=== PATIENT | female | born 1985 | race Caucasian/White ===

== ENCOUNTER 2016-04-14 11:16 | Observation (INO) | payer OTHER ==
[2016-04-14 11:52] LABS: Appearance,Urine Clear (Clear); Bacteria,Urine Occasional /hpf; Bilirubin,Urine Negative (Negative); Glucose,Urine (UA) Negative (Negative); Ketones,Urine Negative (Negative); Leukocyte Esterase,Urine Small (Negative); Mucus,Urine Rare /hpf; Nitrite,Urine Negative (Negative); PH, Urine 6.5 (5.0-8.0); Particle Count 6025; Protein,Urine 1+ (Negative); RBC,Urine 5 /hpf (0-5); Specific Gravity,Urine 1.013 (1.001-1.035); Squamous Epithelial Cell,Urine 2 /hpf (0-4); UA Billing (MACRO vs. MICRO) MICRO; Urobilinogen,Urine <2.0 mg/dL (<2.0); WBC,Urine 12 /hpf (0-5)
[2016-04-14] MEDS ORDERED: MORPHINE SULFATE 2 MG/ML SYRINGE IVP ONE (12:10)
[2016-04-14] MEDS ORDERED: ONDANSETRON 4 MG/2 ML VIAL IVP STA (12:10)
[2016-04-14] MEDS: LACTATED RINGERS 1,000 ML IV ONE ×2 (12:43→12:55)
--- NOTE | 2016-04-14 12:49 | US ---
EXAMINATION TYPE: US kidneys/renal and bladder DATE OF EXAM: 04/14/2016 12:37 PM COMPARISON: NONE CLINICAL HISTORY: right side flank pain. History of kidney infection. 28 weeks EXAM MEASUREMENTS: Right Kidney: 13.9 x 6.6 x 6.6 cm Left Kidney: 10.8 x 5.0 x 5.1 cm Findings: Right Kidney: moderate hydronephrosis Left Kidney: No hydronephrosis or nephrolithiasis. Bladder: appears within normal limits. Bilateral Jets seen: yes No solid or cystic mass seen. IMPRESSION: There is moderate right-sided hydronephrosis with no evidence of renal calculus.
[2016-04-14 12:51] LABS: Basophils % (A) 0 %; CH 31.3; Eosinophils % (A) 0 %; HCT 31.9 % (34.0-46.0); HDW 2.94; HGB 10.8 gm/dL (11.4-16.0); Luc # (Auto) 0.22; Luc % (Auto) 2; Lymphocytes # (A) 0.7 k/uL (1.0-4.8); Lymphocytes % (A) 5 %; MCH 30.5 pg (25.0-35.0); MCHC 33.9 g/dL (31.0-37.0); MCV 89.9 fL (80.0-100.0); Mean Platelet Volume 7.7; Monocytes # (A) 0.6 k/uL (0-1.0); Monocytes % (A) 4 %; Neutrophils # (A) 12.9 k/uL (1.3-7.7); Neutrophils % (A) 89 %; RBC 3.54 m/uL (3.80-5.40); RDW 13.4 % (11.5-15.5); WBC 14.4 k/uL (3.8-10.6); WBC (Perox) 15.32
[2016-04-14] MEDS ORDERED: MORPHINE SULFATE 2 MG/ML SYRINGE IVP PRN (13:16)
[2016-04-14] MEDS: LACTATED RINGERS 1,000 ML IV SCH ×2 (13:46→23:05)
[2016-04-14 14:12] VITALS: BMI 29.9
[2016-04-14] MEDS ORDERED: Acetaminophen-Codeine 300-30mg TAB PO PRN (15:15)
[2016-04-14] MEDS: Acetaminophen-Codeine 300-30mg TAB PO PRN ×2 (15:30→19:48)
[2016-04-14 16:46] LABS: Bilirubin, Delta 0.1 mg/dL (0.0-0.2); Total Bilirubin 0.5 mg/dL (0.2-1.3); Total Protein 6.1 g/dL (6.3-8.2)
--- NOTE | 2016-04-14 16:51 | P.HPOB ---
History of Present Illness H&P Date: 04/14/16 Chief Complaint: Right flank pain In was 31-year-old at 27 weeks who reports that on Thursday she began having right flank and back pain. Pain persisted through the weekend and despite slightly worsening symptoms on Thursday she decided to stay home. She went to work then today and the pain got severe rated 9 out of 10. Patient came to labor and delivery and was evaluated initial concern was that of a kidney stone. She was treated by Dr. Anna with morphine sulfate for pain control and was to be observed and see if the pain would get better. Throughout the day her pain continued to worsen in the came slightly more generalized to both the right flank and right upper abdominal area. She reports that she has no shortness of breath or other symptoms of respiratory etiology. She reports that throughout much the day it is been 8 out of 10 despite morphine sulfate and Tylenol 3. She denies any difficulty and tolerating her diet. Her white blood cell count was 14. There was a trace of blood on the urinalysis. Ultrasound of the kidneys revealed right hydronephrosis only. No stone is noted. THE GALLBLADDER WAS NEGATIVE. LIVER TESTS ARE PENDING. STILL SUSPECT LIKELY KIDNEY STONE VERSUS ATYPICAL KIDNEY INFECTION as she was treated for a bladder infection a couple of weeks ago but did not finish her antibiotics. We'll restart her on Unasyn as a precaution. And repeat her CBC in the morning. On physical exam vital signs are currently stable and she is afebrile. Her heart is regular, lungs are clear, extremities are without pain. Abdomen is soft uterus is soft no contractions are noted in the heart tones had been reassuring in the 130s to 150s. She did have costovertebral angle tenderness on the right side only. Assessment right flank pain atypical kidney infection versus stone Plan IV hydration and precautionary antibiotics. We'll repeat her CBC in the morning and continue observational status with pain control. Past Medical History Past Medical History: No Reported History History of Any Multi-Drug Resistant Organisms: None Reported Past Surgical History: No Surgical Hx Reported Additional Past Surgical History / Comment(s): surgery on lt side of head to fix soft spot as infant Past Anesthesia/Blood Transfusion Reactions: No Reported Reaction Past Psychological History: No Psychological Hx Reported Smoking Status: Never smoker Past Alcohol Use History: Abuse, Daily, Occasional Past Drug Use History: None Reported - Past Family History Mother Family Medical History: No Reported History Medications and Allergies Home Medications Medication Instructions Recorded Confirmed Type Pnv with Ca,No.72/Iron/FA 1 each PO DAILY 04/14/16 04/14/16 History [ Plus Tablet] Allergies Allergy/AdvReac Type Severity Reaction Status Date / Time No Known Allergies Allergy Verified 04/14/16 11:21 Exam Osteopathic Statement: *. No significant issues noted on an osteopathic structural exam other than those noted in the History and Physical/Consult. - Vital Signs Vital signs: Vital Signs Temp Pulse Resp BP 04/14/16 11:22 97.7 F 89 16 109/60 Intake and Output 04/14/16 04/14/16 04/14/16 06:59 14:59 22:59 Other: # Voids 1 Weight 84.368 kg Patient Weight 04/15/16 06:59 Weight 84.368 kg Results Result Diagrams: 04/14/16 12:40 Abnormal Lab Results - Last 24 Hours (Table) 04/14/16 04/14/16 04/14/16 Range/Units 11:25 12:40 16:13 WBC 14.4 H (3.8-10.6) k/uL RBC 3.54 L (3.80-5.40) m/uL Hgb 10.8 L (11.4-16.0) gm/dL Hct 31.9 L (34.0-46.0) % Neutrophils # 12.9 H (1.3-7.7) k/uL Lymphocytes # 0.7 L (1.0-4.8) k/uL Total Protein 6.1 L (6.3-8.2) g/dL Albumin 3.3 L (3.5-5.0) g/dL Urine Protein 1+ H (Negative) Urine Blood Trace H (Negative) Ur Leukocyte Esterase Small H (Negative) Urine WBC 12 H (0-5) /hpf Urine Bacteria Occasional H (None) /hpf Urine Mucus Rare H (None) /hpf
--- NOTE | 2016-04-14 17:11 | US ---
EXAMINATION TYPE: US gallbladder DATE OF EXAM: 04/14/2016 4:59 PM COMPARISON: NONE CLINICAL HISTORY: right side pain. 28 weeks , right hydronephrosis EXAM MEASUREMENTS: Liver Length: 17.8 cm Gallbladder Wall: 0.2 cm CBD: 0.4 cm Right Kidney: 12.7 x 7.5 x 6.6 cm TECHNOLOGIST IMPRESSION: Pancreas: obscured by overlying bowel content Liver: appears wnl Gallbladder: no evidence of stones Evidence for sonographic Bueno's sign: no CBD: appears wnl Right Kidney: hydronephrosis IMPRESSION: No gallstones or dilated ducts. There is moderate right-sided hydronephrosis. This howeve r is not changed compared to old exam of 04/14/2016. There is no significant right renal atrophy and th is probably relates to reflux disease.
[2016-04-14] MEDS: AMPICILLIN-SULBACTAM 1.5 GM in SODIUM CHLORIDE 0.9% 50 ML IVPB SCH ×2 (17:52→23:38)
[2016-04-15] MEDS: AMPICILLIN-SULBACTAM 1.5 GM in SODIUM CHLORIDE 0.9% 50 ML IVPB SCH ×4 (05:44→23:30)
[2016-04-15 07:47] LABS: Basophils % (A) 0 %; CH 30.6; Eosinophils # (A) 0.1 k/uL (0-0.7); Eosinophils % (A) 1 %; HCT 29.9 % (34.0-46.0); HDW 2.94; HGB 10.1 gm/dL (11.4-16.0); Luc % (Auto) 2; Lymphocytes # (A) 0.7 k/uL (1.0-4.8); Lymphocytes % (A) 7 %; MCH 30.7 pg (25.0-35.0); MCHC 33.9 g/dL (31.0-37.0); MCV 90.7 fL (80.0-100.0); Mean Platelet Volume 7.9; Monocytes # (A) 0.6 k/uL (0-1.0); Monocytes % (A) 6 %; Neutrophils # (A) 8.2 k/uL (1.3-7.7); Neutrophils % (A) 84 %; RDW 13.3 % (11.5-15.5); WBC 9.8 k/uL (3.8-10.6); WBC (Perox) 10.28
--- NOTE | 2016-04-15 08:34 | P.PN ---
Subjective Principal diagnosis: Right flank pain Patient states her pain is no better since yesterday. She states the Tylenol 3 did not help at all and the morphine just made her go to sleep but only took her pain down the notch. She states the pain does feel like when she had a kidney infection in the past. She has noted no stones in her urine. No blood that she is visualized in her urine. She does have some nausea but thinks it is associated with the pain. She is feeling good movement. Objective - Vital Signs Vital signs: Vital Signs Temp 97.7 F 04/14/16 11:22 Pulse 89 04/14/16 11:22 Resp 16 04/14/16 11:22 BP 109/60 04/14/16 11:22 Pulse Ox Intake & Output 04/14/16 04/15/16 04/15/16 18:59 06:59 18:59 Intake Total 1100 Balance 1100 Weight 84.368 kg Intake: IV 1000 Lactated Ringers 1,000 ml 1000 @ 125 mls/hr IV .Q8H BRANDO Rx#:[id number] Intake, IV Titration 100 Amount Ampicillin-Sulbactam 1.5 100 gm In Sodium Chloride 0.9 % 50 ml @ 100 mls/hr IVPB Q6HR BRANDO Rx#:[id number] Other: # Voids 1 1 - Constitutional General appearance: Present: mild distress - Gastrointestinal Localized gastrointestinal: tender: RLQ (Right flank pain positive) - Labs CBC & Chem 7: 04/15/16 07:06 Labs: Abnormal Lab Results - Last 24 Hours (Table) 04/14/16 04/14/16 04/14/16 Range/Units 11:25 12:40 16:13 WBC 14.4 H (3.8-10.6) k/uL RBC 3.54 L (3.80-5.40) m/uL Hgb 10.8 L (11.4-16.0) gm/dL Hct 31.9 L (34.0-46.0) % Plt Count (150-450) k/uL Neutrophils # 12.9 H (1.3-7.7) k/uL Lymphocytes # 0.7 L (1.0-4.8) k/uL Total Protein 6.1 L (6.3-8.2) g/dL Albumin 3.3 L (3.5-5.0) g/dL Urine Protein 1+ H (Negative) Urine Blood Trace H (Negative) Ur Leukocyte Esterase Small H (Negative) Urine WBC 12 H (0-5) /hpf Urine Bacteria Occasional H (None) /hpf Urine Mucus Rare H (None) /hpf 04/15/16 Range/Units 07:06 WBC (3.8-10.6) k/uL RBC 3.30 L (3.80-5.40) m/uL Hgb 10.1 L (11.4-16.0) gm/dL Hct 29.9 L (34.0-46.0) % Plt Count 146 L (150-450) k/uL Neutrophils # 8.2 H (1.3-7.7) k/uL Lymphocytes # 0.7 L (1.0-4.8) k/uL Total Protein (6.3-8.2) g/dL Albumin (3.5-5.0) g/dL Urine Protein (Negative) Urine Blood (Negative) Ur Leukocyte Esterase (Negative) Urine WBC (0-5) /hpf Urine Bacteria (None) /hpf Urine Mucus (None) /hpf Microbiology - Last 24 Hours (Table) 04/14/16 12:13 Urine Culture - Preliminary Urine,Clean Catch - Imaging and Cardiology US - abdomen: report reviewed Assessment and Plan (1) Acute abdominal pain in right flank Status: Acute (2) Kidney stone on right side Narrative/Plan: Probable kidney stone on right side Status: Acute Plan: Based on the right hydronephrosis and her right flank pain, she most likely has a kidney stone that is working its way through. We'll continue with antibiotic prophylaxis and I encouraged her to ambulate to help remove the stone. We'll continue with IV and oral hydration. Will try Dilaudid instead of morphine to see if we can get better pain control for her.
[2016-04-15] MEDS: LACTATED RINGERS 1,000 ML IV SCH ×2 (09:00→18:30)
[2016-04-15] MEDS: HYDROmorphone 1 MG/ML 1 ML SYRINGE IVP PRN ×3 (09:01→22:34)
--- NOTE | 2016-04-15 21:57 | P.MSEPDOC ---
Presenting Problems - Arrival Data Date of Arrival on Unit: 04/14/16 Time of Arrival on Unit: 11:10 Mode of Transport: Portable - Complaint OB-Reason for Admission/Chief Complaint: Signs/Symptoms UTI Medical History - Information : 1 Para: 0 Term: 0 : 0 Abortions: Spontaneous or Elective: 0 Number of Living Children: 0 - Gestational Age Expected Date of Delivery: 07/08/16 Gestational Age by AMANDA (wks/days): 28 Weeks and 0 Days Review of Systems - Review of Systems Constitutional: No problems Breast: No problems ENT: No problems Cardiovascular: No problems Respiratory: No problems Gastrointestinal: No problems Genitourinary: No problems Musculoskeletal: No problems Vital Signs - Temperature Temperature: 98 F Temperature Source: Oral - Pulse Right Sitting Brachial Pulse Rate: 95 Pulse Assessment Method: Automatic Cuff - Respirations Respiratory Rate: 20 Oxygen Delivery Method: Room Air - Blood Pressure Right Arm Sitting Blood Pressure: 111/58 Blood Pressure Mean: 75 Blood Pressure Source: Automatic Cuff Medical Screen Scoring (Pre) - Total Score Total Score (Pre): 0 - Level of Risk Level of Risk: Low (0-5) Medical Screen Scoring (Post) - Total Score Total Score (Post): 6 - Post Treatment Level of Risk Post Treatment Level of Risk: Medium (6-9) Physician Notification (Post) - Physician Notified Physician Notified Date: 04/14/16 Physician Notified Time: 13:20 Physician/Practitioner Notified:: Dr Dawson Spoke With: Dr Dawson New Order Received: Yes - Notification Comment Comment: Admit for observation Disposition - Disposition OB Disposition: Admit, LDRP Suite I agree with the RN Medical Screening Exam: Yes Risk & Benefit of care provided described in d/c instruction: Yes
[2016-04-16] MEDS: AMPICILLIN-SULBACTAM 1.5 GM in SODIUM CHLORIDE 0.9% 50 ML IVPB SCH (05:43)
[2016-04-16] MEDS: LACTATED RINGERS 1,000 ML IV SCH ×4 (05:44→19:59)
[2016-04-16] MEDS: HYDROmorphone 1 MG/ML 1 ML SYRINGE IVP PRN (05:53)
[2016-04-16 06:02] LABS: Basophils % (A) 0 %; CH 30.6; CHCM 34.2; Eosinophils # (A) 0.1 k/uL (0-0.7); Eosinophils % (A) 1 %; HCT 29.7 % (34.0-46.0); HDW 3.07; HGB 10.1 gm/dL (11.4-16.0); Luc # (Auto) 0.35; Luc % (Auto) 4; Lymphocytes % (A) 11 %; MCH 30.6 pg (25.0-35.0); MCV 90.1 fL (80.0-100.0); Mean Platelet Volume 7.6; Monocytes # (A) 0.6 k/uL (0-1.0); Monocytes % (A) 7 %; Neutrophils # (A) 7.1 k/uL (1.3-7.7); Neutrophils % (A) 78 %; RBC 3.29 m/uL (3.80-5.40); RDW 13.2 % (11.5-15.5); WBC 9.2 k/uL (3.8-10.6); WBC (Perox) 9.75
--- NOTE | 2016-04-16 08:37 | P.PN ---
Subjective Principal diagnosis: Right flank pain Patient has been and bleeding yesterday. She feels that the pain may have shifted slightly more forward but still in her right flank. The Dilaudid does work much better than the morphine did but does make her tired. She vomited 1 time yesterday but she thinks it was due to the pain medication. She has been drinking planning of fluids. Her urine culture did come back negative for growth. Objective - Vital Signs Vital signs: Vital Signs Temp 97.5 F L 04/16/16 00:00 Pulse 77 04/16/16 00:00 Resp 14 04/16/16 00:00 BP 113/63 04/16/16 00:00 Pulse Ox Intake & Output 04/15/16 04/16/16 04/16/16 18:59 06:59 18:59 Intake Total 1000 Balance 1000 Intake: IV 1000 Lactated Ringers 1,000 ml 1000 @ 125 mls/hr IV .Q8H BRANDO Rx#:[id number] Other: # Voids 2 2 - Constitutional General appearance: Present: no acute distress - Gastrointestinal Localized gastrointestinal: tender: RLQ (Right flank tenderness with some mild percussion tenderness to the right kidney area. No guarding or rebound is noted.) - Labs CBC & Chem 7: 04/16/16 05:39 Labs: Abnormal Lab Results - Last 24 Hours (Table) 04/16/16 Range/Units 05:39 RBC 3.29 L (3.80-5.40) m/uL Hgb 10.1 L (11.4-16.0) gm/dL Hct 29.7 L (34.0-46.0) % Microbiology - Last 24 Hours (Table) 04/14/16 12:13 Urine Culture - Final Urine,Clean Catch Assessment and Plan (1) Acute abdominal pain in right flank Status: Acute (2) Kidney stone on right side Status: Acute Plan: I have advised the patient to first take the oral Tylenol 3 and then if it is ineffective she should requested the Dilaudid. I've advised her to continue ambulating as much as possible. If she the oral pain medications can make her pain tolerable, we will be able to send her home on oral Tylenol 3. She is advised to continue straining her urine even home. Dr. Dawson will cover in my absence today.
[2016-04-16] MEDS: Acetaminophen-Codeine 300-30mg TAB PO PRN ×2 (13:12→23:08)
[2016-04-17 00:34] VITALS: BP 99/52; PULSE 71; RESP 16; TEMP 97.3
[2016-04-17] MEDS: LACTATED RINGERS 1,000 ML IV SCH (04:13)
--- NOTE | 2016-04-17 10:21 | P.DS ---
Providers Date of admission: 04/14/16 13:17 Expected date of discharge: 04/17/16 Attending physician: Bianca Flowers Primary care physician: Stated None Hospital Course: Family is feeling significantly better today. She is voicing no complaints and her pain is essentially completely resolved. Still some question as to whether not she has a kidney stone or other abnormality including possible muscle strain or spasm as well as just positioning of the baby. However since she is pain-free we will plan to discharge her to home today and have her follow up with Dr. Anna next week. Prescription for approximately 20 Tylenol 3 has been provided just in case she starts having pain returned. She is however aware that should she have severe pain or significant tenderness, high temperatures, or other abnormalities that are concerning she is to return to labor and delivery. Otherwise her vital signs are in stable and she is afebrile. Heart regular lungs clear, extremities without pain. Abdomen is now soft and nontender positive bowel sounds are noted. Assessment intrauterine with right flank pain now resolved. Patient Condition at Discharge: Good Plan - Discharge Summary Discharge Medication List Pnv with Ca,No.72/Iron/FA [ Plus Tablet] 1 each PO DAILY 04/14/16 [ History]
== END 2016-04-17 11:15 | disposition home or self-care (01) ==
LOC: FBPOP 11:16 → 4FBP 13:17
PROVIDERS: ADMIT Obstetrics & Gynecology; ATTEND Obstetrics & Gynecology
DX: O26.892 Other specified pregnancy related conditions, second trimester (principal); R10.31 Right lower quadrant pain; Z3A.27 27 weeks gestation of pregnancy; N13.30 Unspecified hydronephrosis; R11.10 Vomiting, unspecified; Z79.899 Other long term (current) drug therapy
CPT/HCPCS: 96361; 96374; 80076; 82248; 85025 ×3; 81001; 87086; 76770; 76705; G0378 ×4; G0463; J2270; J1170 ×2; J0295 ×3; 96365; 96366; 96375; 96376; 99214

== ENCOUNTER → 2016-05-01 | Outpatient (CLI) | payer OTHER ==
[2016-05-01 13:07] LABS: CH 29.8; CHCM 33.5; HCT 29.5 % (34.0-46.0); HDW 3.53; HGB 9.8 gm/dL (11.4-16.0); Hypochromasia Slight; MCH 29.7 pg (25.0-35.0); MCHC 33.2 g/dL (31.0-37.0); MCV 89.5 fL (80.0-100.0); Mean Platelet Volume 6.8; Poikilocytosis Slight; RDW 13.3 % (11.5-15.5); WBC 9.1 k/uL (3.8-10.6)
== END ==
LOC: LABWHC1 11:48
PROVIDERS: ATTEND Obstetrics & Gynecology
DX: Z34.02 Encounter for supervision of normal first pregnancy, second trimester (principal); Z3A.00 Weeks of gestation of pregnancy not specified
CPT/HCPCS: 36415; 82950; 85027

== ENCOUNTER 2016-07-15 06:00 | Inpatient (IN) | payer OTHER ==
--- NOTE | 2016-07-14 17:00 | P.HPOB ---
History of Present Illness H&P Date: 07/14/16 Chief Complaint: Induction of labor This is a 31-year-old female 1 para 0 with an estimated date of confinement of 07/08/2016, estimated gestational age of 41-0/7 weeks, who presents to labor and delivery for induction of labor secondary to postdates. She admits to good movement. She has been feeling irregular contractions. She does complain of some leg swelling but no headaches or blurry vision. labs: GC/chlamydia-negative HIV-nonreactive Quad screen-negative Random glucose-59 Hepatitis B surface antigen-negative Hemoglobin-10.8 Rubella-immune Blood type-O+ Antibody screen-negative Toxoplasma-negative Syphilis antibody-negative Obstetrical ultrasound-normal anatomy One hour Glucola-97 Group B streptococcus-negative Obstetrical history: Gynecologic history: No history of sexual transmitted diseases Social history: She is single with a boyfriend. She works full-time at [employer] in [employer]. Review of Systems Constitutional: Denies chills, Denies fever Eyes: denies blurred vision Ears, nose, mouth and throat: Denies headache, Denies sore throat Cardiovascular: Denies chest pain, Denies shortness of breath Respiratory: Denies cough Gastrointestinal: Reports abdominal pain (Irregular contractions) Genitourinary: Reports pelvic pain, Reports Musculoskeletal: bilateral: ankle swelling Neurological: Denies numbness, Denies weakness Psychiatric: Denies anxiety, Denies depression Past Medical History Past Medical History: No Reported History History of Any Multi-Drug Resistant Organisms: None Reported Past Surgical History: No Surgical Hx Reported Additional Past Surgical History / Comment(s): surgery on lt side of head to fix soft spot as Past Anesthesia/Blood Transfusion Reactions: No Reported Reaction Past Psychological History: No Psychological Hx Reported Smoking Status: Former smoker Past Alcohol Use History: None Reported Past Drug Use History: None Reported - Past Family History Mother Family Medical History: No Reported History Father Family Medical History: Hypertension Medications and Allergies Home Medications Medication Instructions Recorded Confirmed Type Pnv,Calcium 72/Iron/Folic Acid 1 each PO DAILY 04/14/16 04/25/16 History [ Plus Tablet] Allergies Allergy/AdvReac Type Severity Reaction Status Date / Time No Known Allergies Allergy Verified 04/14/16 11:21 Exam Osteopathic Statement: *. No significant issues noted on an osteopathic structural exam other than those noted in the History and Physical/Consult. HEENT: Within normal limits Heart: Regular rate and rhythm Lungs: Clear to auscultation bilaterally Abdomen: Soft, Cervix: 1 cm/70%/-2 station heart tones: 140s by Doppler Extremities: Trace edema Assessment and Plan (1) Post-dates Status: Acute Plan: Proceed with oxytocin induction of labor. Expectant management. Epidural anesthesia if desired.
[2016-07-15] MEDS ORDERED: OXYTOCIN 10 UNIT/ML 1 ML VIAL IM PRN (06:23)
[2016-07-15] MEDS ORDERED: TERBUTALINE 1 MG/ML VIAL SQ PRN (06:23)
[2016-07-15] MEDS ORDERED: OXYTOCIN 20 UNITS/1000 ML NS 1,000 ML IV SCH (06:23)
[2016-07-15] MEDS ORDERED: LIDOCAINE 1% 20 ML VIAL (10MG/ML) FOR IV START INTRADERMA PRN (06:23)
[2016-07-15] MEDS ORDERED: LIDOCAINE 1% (PF) 10 MG/ML (30 ML SDV) SQ PRN (06:23)
[2016-07-15] MEDS ORDERED: METHYLERGONOVINE 0.2 MG/ML 1 ML AMP IM PRN (06:23)
[2016-07-15] MEDS ORDERED: CARBOPROST TROMETHAMINE 250 MCG/ML 1 ML AMP IM PRN (06:23)
[2016-07-15 06:30] VITALS: BMI 33.5
[2016-07-15 07:16] LABS: Basophils % (A) 0 %; CH 30.1; CHCM 35.5; Eosinophils # (A) 0.1 k/uL (0-0.7); Eosinophils % (A) 1 %; HCT 34.4 % (34.0-46.0); HDW 3.24; HGB 12.3 gm/dL (11.4-16.0); Luc # (Auto) 0.27; Luc % (Auto) 3; Lymphocytes # (A) 1.5 k/uL (1.0-4.8); Lymphocytes % (A) 15 %; MCH 30.5 pg (25.0-35.0); MCHC 35.8 g/dL (31.0-37.0); MCV 85.1 fL (80.0-100.0); Monocytes # (A) 0.4 k/uL (0-1.0); Monocytes % (A) 4 %; Neutrophils # (A) 7.9 k/uL (1.3-7.7); Neutrophils % (A) 77 %; RBC 4.04 m/uL (3.80-5.40); RDW 14.5 % (11.5-15.5); WBC 10.2 k/uL (3.8-10.6); WBC (Perox) 10.34
[2016-07-15 07:21] LABS: Appearance,Urine Cloudy (Clear); Bacteria,Urine Occasional /hpf; Bilirubin,Urine Negative (Negative); Glucose,Urine (UA) Negative (Negative); Ketones,Urine Negative (Negative); Leukocyte Esterase,Urine Moderate (Negative); Mucus,Urine Moderate /hpf; Nitrite,Urine Negative (Negative); PH, Urine 6.5 (5.0-8.0); Particle Count 12543; Protein,Urine 1+ (Negative); Specific Gravity,Urine 1.011 (1.001-1.035); Squamous Epithelial Cell,Urine 5 /hpf (0-4); UA Billing (MACRO vs. MICRO) MICRO; Urobilinogen,Urine <2.0 mg/dL (<2.0); WBC,Urine 14 /hpf (0-5)
[2016-07-15 07:28] LABS: INR 0.9 (<1.1); Prothrombin Time 9.2 sec (9.0-12.0)
[2016-07-15 07:37] LABS: ALT 54 U/L (9-52); AST 41 U/L (14-36); Blood Urea Nitrogen 7 mg/dL (7-17); LDH 617 U/L (313-618); Non-African American GFR(MDRD) >60 (>60 ml/min/1.73 sqM); Uric Acid 5.5 mg/dL (3.7-7.4)
[2016-07-15] MEDS: LACTATED RINGERS 1,000 ML IV SCH ×2 (07:46→13:28)
[2016-07-15] MEDS ORDERED: LABETALOL 5 MG/ML VIAL MDV IVP ONE (08:48)
[2016-07-15] MEDS ORDERED: MAGNESIUM SULFATE-WATER PMX 4 GM in WATER FOR INJECTION 50 50ML.BAG IVPB ONE (08:48)
[2016-07-15] MEDS: MAGNESIUM SULFATE-WATER PMX 20 GM in WATER FOR INJECTION 1 500ML.BAG IV SCH ×2 (09:08→18:15)
[2016-07-15] MEDS ORDERED: SODIUM CHLORIDE 0.9% 100 ML BAG ONE ×3 (14:16→20:17)
[2016-07-15] MEDS ORDERED: fentaNYL (PF) 50 MCG/ML 5 ML AMP ONE ×2 (14:16→20:17)
[2016-07-15] MEDS ORDERED: BUPIVACAINE (PF) 0.25% 30 ML VIAL ONE ×2 (14:16→20:17)
[2016-07-15] MEDS ORDERED: BUPIVACAINE (PF) 0.25% 25 ML, fentaNYL (PF) 200 MCG in SODIUM CHLORIDE 0.9% 71 ML EPIDURAL ONE (16:05)
[2016-07-15] MEDS ORDERED: CITRIC ACID-SODIUM CITRATE 15 ML CUP PO ONE (18:05)
[2016-07-15] MEDS ORDERED: ceFAZolin 2 GM in SODIUM CHLORIDE 0.9% 100 ML IVPB ONE (18:05)
[2016-07-15] MEDS ORDERED: ONDANSETRON 4 MG/2 ML VIAL IM STA (19:43)
[2016-07-15] MEDS ORDERED: OXYTOCIN 10 UNIT/ML 1 ML VIAL ONE (20:17)
[2016-07-15] MEDS ORDERED: ceFAZolin 1,000 MG VIAL ONE (20:17)
[2016-07-15] MEDS ORDERED: ONDANSETRON 4 MG/2 ML VIAL ONE (20:17)
[2016-07-15] MEDS ORDERED: KETOROLAC 30 MG/ML 1 ML VIAL ONE (20:17)
[2016-07-15] MEDS ORDERED: CHLOROPROCAINE 3% 30 MG/ML 20 ML VIAL ONE (20:17)
[2016-07-15] MEDS ORDERED: ePHEDrine 50 MG/ML 1 ML AMP ONE (20:17)
[2016-07-15 20:47] LABS: Hepatitis B Surface Ag Index 0.06
[2016-07-15 20:53] LABS: Hepatitis B Core IgM Index 0.02
[2016-07-15 21:04] LABS: Hepatitis C Virus IgG Ab Negative (Negative); Hepatitis C Virus IgG Index 0.01
--- NOTE | 2016-07-15 21:12 | P.OP ---
Date of Procedure: 07/15/16 Preoperative Diagnosis: 1. Intrauterine at 41-0/7 weeks. 2. Failure to progress. 3. Severe preeclampsia. Postoperative Diagnosis: Same Procedure(s) Performed: Primary low transverse section Implants: Anesthesia: epidural Surgeon: Bianca Flowers Inhalation Therapy Aide #1: Merlin Swenson Estimated Blood Loss (ml): 600 Pathology: other (Placenta) Condition: stable Disposition: floor Indications for Procedure: This is a 31-year-old female 1 para 0 at 41-0/7 weeks who initially presented this morning for induction of labor at that has been scheduled. Upon arrival, she was noted to have elevated blood pressures. Labs were ordered and she was found to have 1+ protein and slightly elevated liver enzymes. Her platelet count was normal. Her blood pressures continued to elevate up to over 160/110. At this time she was given labetalol protocol IV. She did receive 3 doses up to the maximum of 80 mg. This along with magnesium sulfate seizure prophylaxis did bring her blood pressures down considerably. She reached approximate 3 cm and then requested epidural. She was comfortable after her epidural however she did not make any further change despite adequate contractions. At this point there was also noted some caput present. At this point the decision was made to proceed with section. I have discussed the risks, benefits, and alternative therapies for the above- mentioned procedure and for both sedation/anesthesia as well as necessary blood products administration, if indicated, as they pertain to this patient. The patient has indicated her understanding and acceptance of the risks and procedures discussed. Operative Findings: A viable female infant was noted in the vertex presentation with scores of 8 at 1 minute and 9 at 5 minutes and weight of 8 lbs. 0 oz. There was a small amount of caput noted. Normal uterus tubes and ovaries were noted. Description of Procedure: The patient is taken to the operating room where she is placed in the dorsal supine position with leftward tilt after epidural anesthesia is bolused. She is prepped and draped in the normal sterile fashion. Skin was tested and found to be adequately anesthetized. A Pfannenstiel skin incision was made with a scalpel. A second knife was used to carry the incision down to the underlying layer of fascia. The fascia was nicked in the midline with a scalpel and then extended laterally bilaterally with Kaplan scissors. The anterior lip of the fascia was grasped with 2 Jennifer clamps and then dissected off the underlying rectus muscle in the midline with Kaplan scissors. The inferior aspect of the fascial incision was grasped with 2 Jennifer clamps and dissected off the underlying rectus muscle and the midline with Kaplan scissors. Next the peritoneum layer was tented up with 2 hemostats and then entered sharply with the scalpel. The incision is extended superiorly and inferiorly with Metzenbaum scissors. Next a DeLee retractor is placed. The vesicouterine peritoneum is entered sharply with Metzenbaum scissors and extended laterally bilaterally with Metzenbaum scissors and then the bladder flap is pushed inferiorly. The lower uterine segment is incised in transverse fashion with the scalpel and then bluntly entered with a hemostat. Clear fluid is noted. The incision was then extended laterally bilaterally with 2 fingers. Next the 's head is delivered through the incision. Nose and mouth are bulb suctioned. The remainder of the is easily delivered and placed on mother 's abdomen. Cord is clamped and cut. Infant is taken to warmer by nursing staff. Uterine fundus is gently massaged and placenta is delivered manually. Uterus is exteriorized and cleared of all clots and debris. Uterine incision is closed with 0 Vicryl suture in a running locked fashion. A second layer of 0 Vicryl suture is used in a running fashion for hemostasis. Once adequate hemostasis as assured, the vesicouterine peritoneum is reapproximated with 2-0 Vicryl suture in a running fashion. Posterior cul-de-sac is suctioned of all clots and debris. Uterus is returned to the abdomen. Incision is noted to be hemostatic. Peritoneal layer is closed with 0 Vicryl suture in a running fashion. Muscle layer is reapproximated with 0 Vicryl suture in interrupted fashion. Fascia layer is then closed with 0 PDS suture with 2 sutures meeting in the midline and the knots buried in either side and in the midline. The subcutaneous tissue was then closed with 2-0 Vicryl suture. Skin layer was then closed with kourtney. All sponge and needle counts are correct. The patient is taken to recovery room in stable condition.
[2016-07-15] MEDS ORDERED: diphenhydrAMINE 25 MG CAP PO PRN (21:24)
[2016-07-15] MEDS ORDERED: ZOLPIDEM 5 MG TAB PO PRN (21:24)
[2016-07-15] MEDS ORDERED: LANOLIN CREAM 5 GM TUBE TOPICAL PRN (21:24)
[2016-07-15] MEDS ORDERED: HYDROmorphone PCA 5 MG/25 ML SYRINGE IV PRN (21:24)
[2016-07-15] MEDS ORDERED: METOCLOPRAMIDE 5 MG/ML 2 ML VIAL IVP PRN (21:24)
[2016-07-15] MEDS ORDERED: ACETAMINOPHEN TAB 325 MG TAB PO PRN ×2 (21:24)
[2016-07-15] MEDS ORDERED: HYDROCORTISONE 2.5% RECTAL CREAM 30 GM TUBE RECTAL PRN (21:24)
[2016-07-15] MEDS ORDERED: NALOXONE 0.4 MG/ML 1 ML VIAL IV PRN (21:24)
[2016-07-15] MEDS ORDERED: diphenhydrAMINE 50 MG/ML 1 ML VIAL IVP PRN ×2 (21:24)
[2016-07-15] MEDS ORDERED: Acetaminophen-Codeine 300-30mg TAB PO PRN (21:24)
[2016-07-15] MEDS ORDERED: diphenhydrAMINE 50 MG CAP PO PRN (21:24)
[2016-07-15] MEDS ORDERED: ONDANSETRON 4 MG/2 ML VIAL IVP PRN (21:24)
[2016-07-15] MEDS ORDERED: SIMETHICONE 80 MG CHEWABLE PO PRN (21:24)
[2016-07-15] MEDS ORDERED: WITCH HAZEL 1 EACH MED..PAD TOPICAL PRN (21:24)
[2016-07-15] MEDS: SENNOSIDES-DOCUSATE SODIUM 1 EACH TAB PO SCH (23:52)
[2016-07-16] MEDS: LACTATED RINGERS 1,000 ML IV SCH ×3 (00:26→13:57)
[2016-07-16] MEDS ORDERED: LABETALOL 200 MG TAB PO STA (03:08)
[2016-07-16] MEDS: KETOROLAC 30 MG/ML 1 ML VIAL IVP PRN ×3 (03:13→17:12)
[2016-07-16] MEDS: MAGNESIUM SULFATE-WATER PMX 20 GM in WATER FOR INJECTION 1 500ML.BAG IV SCH (04:51)
--- NOTE | 2016-07-16 05:47 | P.PNOBGPC ---
Subjective - Subjective Principal diagnosis: Status post primary section postoperative day #1 Interval history: Patient has not been ambulating due to being on magnesium sulfate seizure prophylaxis. She is not passing gas or flatus yet. Lochia is decreasing. Pain is fairly well controlled with WINDSCREEN FITTER pump. She did require 1 dose of labetalol 200 mg orally at approximately 3 AM due to increasing blood pressures. Her blood pressures have come down since that time. Alcala catheter shows good urine output with clear urine. Patient reports: Reports appetite normal, Reports pain well controlled : doing well, nursing well Objective - Vital Signs Latest vital signs: Vital Signs Temp Pulse Resp BP Pulse Ox 07/16/16 04:00 96.3 F L 77 16 141/90 98 07/16/16 03:30 74 16 141/91 98 07/16/16 02:30 86 16 162/96 94 L 07/16/16 01:30 61 16 155/88 96 07/16/16 00:30 96.3 F L 56 L 16 141/81 100 07/15/16 23:07 97 F L 79 16 145/86 99 07/15/16 22:37 78 16 155/84 98 07/15/16 22:07 83 18 156/86 97 07/15/16 21:52 96.6 F L 110 H 18 139/93 100 07/15/16 21:37 94 16 141/89 99 07/15/16 21:24 98 07/15/16 21:22 76 18 104/51 99 07/15/16 21:07 96.6 F L 73 18 105/53 98 07/15/16 06:22 96.4 F L 81 18 142/103 99 Intake and Output 07/15/16 07/15/16 07/16/16 14:59 22:59 06:59 Intake Total 1050 913.173 9337 Output Total 600 2800 Balance 1050 355.833 -800 Intake: IV 1050 500 700 Lactated Ringers 1,000 ml 1000 400 @ 125 mls/hr IV .Q8H [facility] Rx#:[id number] Magnesium Sulfate-Water 500 300 Pmx 20 gm In Water For Injection 1 500ml.bag @ 2 GM/HR 50 mls/hr IV .Q10H [facility] Rx#:[id number] Magnesium Sulfate-Water 50 Pmx 4 gm In Water For Injection 50 50ml.bag @ 150 mls/hr IVPB ONCE ONE Rx#:[id number] Intake, IV Titration 455.833 600 Amount Magnesium Sulfate-Water 455.833 500 Pmx 20 gm In Water For Injection 1 500ml.bag @ 2 GM/HR 50 mls/hr IV .Q10H [facility] Rx#:[id number] ceFAZolin 2 gm In Sodium 100 Chloride 0.9% 100 ml @ 100 mls/hr IVPB ONCE ONE Rx#:[id number] Oral 700 Output: Urine 600 2200 Estimated Blood Loss 600 - Exam Extremities: Present: edema (Trace). Absent: tenderness Abdomen: Present: normal appearance, soft (Faint bowel sounds 4). Absent: distention, tenderness Incision: Present: normal, dry, intact. Absent: erythematous Uterus: Present: normal, firm. Absent: tenderness - Labs Labs: Abnormal Lab Results - Last 24 Hours (Table) 07/15/16 07/15/16 07/15/16 Range/Units 06:50 06:50 06:50 Neutrophils # (1.3-7.7) k/uL Fibrinogen 639 H (200-500) mg/dL AST 41 H (14-36) U/L ALT 54 H (9-52) U/L Urine Appearance Cloudy H (Clear) Urine Protein 1+ H (Negative) Ur Leukocyte Esterase Moderate H (Negative) Urine WBC 14 H (0-5) /hpf Ur Squamous Epith Cells 5 H (0-4) /hpf Urine Bacteria Occasional H (None) /hpf Urine Mucus Moderate H (None) /hpf 07/15/16 Range/Units 06:50 Neutrophils # 7.9 H (1.3-7.7) k/uL Fibrinogen (200-500) mg/dL AST (14-36) U/L ALT (9-52) U/L Urine Appearance (Clear) Urine Protein (Negative) Ur Leukocyte Esterase (Negative) Urine WBC (0-5) /hpf Ur Squamous Epith Cells (0-4) /hpf Urine Bacteria (None) /hpf Urine Mucus (None) /hpf Assessment and Plan (1) Post-dates Current Visit: Yes Status: Acute Code(s): O48.0 - POST-TERM SNOMED Code(s): 99315913 (2) Severe pre-eclampsia affecting first Current Visit: Yes Status: Acute Code(s): O14.10 - SEVERE PRE-ECLAMPSIA, UNSPECIFIED TRIMESTER SNOMED Code(s): 02737110 (3) delivery delivered Narrative/Plan: Impression is status post primary section postoperative day #1, severe preeclampsia on magnesium sulfate for seizure prophylaxis post delivery. Plan is to continue the magnesium sulfate to approximately 8:30 this morning and then discontinue at 12 hours postdelivery. We will discontinue the Alcala catheter at that time also. I have started her on labetalol 200 mg twice a day starting this morning. Will monitor blood pressures closely. We'll ambulate after magnesium sulfate is discontinued. Awaiting a.m. labs. Current Visit: Yes Status: Acute Code(s): O82 - ENCOUNTER FOR DELIVERY WITHOUT INDICATION SNOMED Code(s): 497265941
[2016-07-16 06:01] LABS: Basophils % (A) 0 %; CH 29.7; CHCM 34.8; Eosinophils % (A) 0 %; HCT 30.6 % (34.0-46.0); HDW 3.16; HGB 10.6 gm/dL (11.4-16.0); Luc # (Auto) 0.32; Luc % (Auto) 2; Lymphocytes # (A) 1.1 k/uL (1.0-4.8); Lymphocytes % (A) 8 %; MCH 29.9 pg (25.0-35.0); MCHC 34.8 g/dL (31.0-37.0); MCV 85.9 fL (80.0-100.0); Monocytes # (A) 0.5 k/uL (0-1.0); Monocytes % (A) 3 %; Neutrophils # (A) 12.2 k/uL (1.3-7.7); Neutrophils % (A) 87 %; RBC 3.56 m/uL (3.80-5.40); RDW 14.6 % (11.5-15.5); WBC 14.1 k/uL (3.8-10.6); WBC (Perox) 14.86
[2016-07-16 06:10] LABS: ALT 46 U/L (9-52); AST 37 U/L (14-36)
[2016-07-16] MEDS: SENNOSIDES-DOCUSATE SODIUM 1 EACH TAB PO SCH ×2 (09:35→20:55)
[2016-07-16] MEDS: LABETALOL 200 MG TAB PO SCH ×2 (09:35→20:54)
[2016-07-16] MEDS: Acetaminophen-Codeine 300-30mg TAB PO PRN (20:55)
[2016-07-17] MEDS: IBUPROFEN 600 MG TAB PO PRN ×3 (00:10→15:37)
[2016-07-17] MEDS: Acetaminophen-Codeine 300-30mg TAB PO PRN ×3 (04:43→20:17)
--- NOTE | 2016-07-17 05:33 | P.PNOBGPC ---
Subjective - Subjective Patient reports: Reports appetite normal, Reports voiding normally, Reports pain well controlled, Reports ambulating normally : doing well Objective - Vital Signs Latest vital signs: Vital Signs Temp Pulse Resp BP Pulse Ox 07/17/16 04:00 97.2 F L 85 14 138/87 96 07/17/16 00:00 98.3 F 81 16 121/75 96 07/16/16 21:00 81 16 136/90 07/16/16 20:00 98 F 71 16 141/81 97 07/16/16 19:00 93 18 127/79 97 07/16/16 18:00 92 18 151/82 97 07/16/16 17:00 67 18 129/83 98 07/16/16 16:00 57 L 18 118/79 96 07/16/16 15:00 77 18 120/74 97 07/16/16 14:00 78 16 120/67 07/16/16 13:00 78 18 126/60 07/16/16 12:00 83 18 122/74 07/16/16 11:00 63 18 134/78 99 07/16/16 10:00 80 20 126/75 99 07/16/16 09:00 93 18 133/77 98 07/16/16 08:00 97.6 F 97 18 123/84 99 07/16/16 07:00 65 16 134/94 97 07/16/16 06:00 60 16 126/70 97 Intake and Output 07/16/16 07/16/16 07/17/16 14:59 22:59 06:59 Intake Total 200 Output Total 1700 600 Balance -1500 -600 Intake: IV 200 Magnesium Sulfate-Water 200 Pmx 20 gm In Water For Injection 1 500ml.bag @ 2 GM/HR 50 mls/hr IV .Q10H [facility] Rx#:[id number] Output: Urine 1700 600 Other: Voiding Method Toilet Toilet # Voids 1 - Exam Lungs: bilateral: normal Chest: Normal S1, Normal S2 Extremities: Present: normal Abdomen: Present: normal appearance, soft. Absent: distention, tenderness Incision: Present: normal, dry, intact Uterus: Present: normal, firm - Labs Labs: Abnormal Lab Results - Last 24 Hours (Table) 07/16/16 07/16/16 Range/Units 05:20 05:20 WBC 14.1 H (3.8-10.6) k/uL RBC 3.56 L (3.80-5.40) m/uL Hgb 10.6 L (11.4-16.0) gm/dL Hct 30.6 L (34.0-46.0) % Neutrophils # 12.2 H (1.3-7.7) k/uL AST 37 H (14-36) U/L Assessment and Plan (1) delivery delivered Narrative/Plan: Stop operative day #2. Patient is resting without new complaints. Vital signs are stable, blood pressures are good on labetalol. Liver test went down yesterday. Plan today is to continue routine postoperative care. Check a CBC and repeat liver test. Most likely discharge home tomorrow. Current Visit: Yes Status: Acute Code(s): O82 - ENCOUNTER FOR DELIVERY WITHOUT INDICATION SNOMED Code(s): 998206845
[2016-07-17 08:17] LABS: Aty Lym Flag Slight; CH 29.7; CHCM 34.6; HCT 31.5 % (34.0-46.0); HDW 3.07; HGB 10.8 gm/dL (11.4-16.0); MCH 29.5 pg (25.0-35.0); MCHC 34.1 g/dL (31.0-37.0); MCV 86.4 fL (80.0-100.0); Mean Platelet Volume 7.9; RBC 3.65 m/uL (3.80-5.40); RDW 14.5 % (11.5-15.5); WBC (Perox) 11.97
[2016-07-17 08:32] LABS: Bilirubin, Delta 0.3 mg/dL (0.0-0.2); Total Bilirubin 0.5 mg/dL (0.2-1.3); Total Protein 5.9 g/dL (6.3-8.2)
[2016-07-17] MEDS: SENNOSIDES-DOCUSATE SODIUM 1 EACH TAB PO SCH ×2 (08:52→21:56)
[2016-07-17] MEDS: LABETALOL 200 MG TAB PO SCH ×2 (08:52→21:03)
[2016-07-17 09:38] LABS: Add Differential Manual Differential
[2016-07-17 09:39] LABS: Nucleated Red Blood Cells 0 /100 WBC (0-0); Total Cells Counted 100
[2016-07-17 09:40] LABS: Manual Review Performed; RBC Morphology Normal
[2016-07-17 11:39] VITALS: RESP 16
--- NOTE | 2016-07-18 05:51 | P.PNOBGPC ---
Subjective - Subjective Patient reports: Reports appetite normal, Reports voiding normally, Reports pain well controlled, Reports ambulating normally : doing well Objective - Vital Signs Latest vital signs: Vital Signs Temp Pulse Resp BP Pulse Ox 07/18/16 03:30 96.7 F L 66 16 124/73 98 07/17/16 23:36 16 07/17/16 23:00 96.8 F L 77 16 142/82 98 07/17/16 21:00 73 169/91 07/17/16 20:00 96.4 F L 76 16 153/92 98 07/17/16 16:00 98.5 F 77 16 134/93 100 07/17/16 12:00 98.5 F 76 16 134/74 99 07/17/16 08:00 98.8 F 77 16 138/82 Intake and Output 07/17/16 07/17/16 07/18/16 14:59 22:59 06:59 Other: # Voids 2 - Exam Lungs: bilateral: normal Chest: Normal S1, Normal S2 Extremities: Present: normal Abdomen: Present: normal appearance, soft. Absent: distention, tenderness Incision: Present: normal, dry, intact Uterus: Present: normal, firm - Labs Labs: Abnormal Lab Results - Last 24 Hours (Table) 07/17/16 07/17/16 Range/Units 08:04 08:04 WBC 11.0 H (3.8-10.6) k/uL RBC 3.65 L (3.80-5.40) m/uL Hgb 10.8 L (11.4-16.0) gm/dL Hct 31.5 L (34.0-46.0) % Neutrophils # (Manual) 9.0 H (1.3-7.7) k/uL Delta Bilirubin 0.3 H (0.0-0.2) mg/dL Alkaline Phosphatase 164 H (38-126) U/L Total Protein 5.9 L (6.3-8.2) g/dL Albumin 3.0 L (3.5-5.0) g/dL Assessment and Plan (1) delivery delivered Narrative/Plan: Post operative day #3. Patient is resting without new complaints. She did have some blood pressure elevation yesterday responded to her oral labetalol. Blood pressures today are good. Patient is tolerating regular diet, ambulate, urinating without difficulty. Patient does wish to go home and I feel she is stable for discharge home. Plan is to continue routine postoperative care, continue labetalol, and discharge home later today to follow up with Dr. Flowers on Thursday for a blood pressure check Current Visit: Yes Status: Acute Code(s): O82 - ENCOUNTER FOR DELIVERY WITHOUT INDICATION SNOMED Code(s): 237862637
--- NOTE | 2016-07-18 05:55 | P.DS ---
Providers Date of admission: 07/15/16 06:12 Expected date of discharge: 07/18/16 Attending physician: Bianca Flowers Primary care physician: Stated None - Discharge Diagnosis(es) (1) delivery delivered Current Visit: Yes Status: Acute Hospital Course: Please see dictated H&P and operative note/delivery note per Dr. Flowers on this patient's admission. This is a 31-year-old female who is admitted for induction of labor and found to be hypertensive. Patient also had elevated liver function tests. She was placed on magnesium sulfate and Pitocin induction of labor however subsequently went on to have a primary section for failure to progress. Please see Dr. Flowers notes. the patient did have continued blood pressure elevation to the extent that she was placed on labetalol 200 mg by mouth twice a day. She is also on magnesium sulfate . By post operative day #3 she was ambulating and urinating without difficulty. Patient wishes to go home was felt to be stable for discharge home on oral antihypertensives follow-up short-term for blood pressure check. Plan - Discharge Summary New Discharge Prescriptions: New Acetaminophen-Codeine 300-30mg [Tylenol w/codeine #3] 1 - 2 each PO Q4HR PRN #40 tab PRN Reason: Mild Pain exceeding Tylenol Ibuprofen [Motrin] 600 mg PO Q6HR PRN #40 tab PRN Reason: Mild Pain Or Fever >= 100.5 Labetalol [Trandate] 200 mg PO BID #60 tab No Action Pnv,Calcium 72/Iron/Folic Acid [ Plus Tablet] 1 each PO DAILY Discharge Medication List Pnv,Calcium 72/Iron/Folic Acid [ Plus Tablet] 1 each PO DAILY 04/14/16 [ History] Acetaminophen-Codeine 300-30mg [Tylenol w/codeine #3] 1 - 2 each PO Q4HR PRN # 40 tab 07/18/16 [Rx] Ibuprofen [Motrin] 600 mg PO Q6HR PRN #40 tab 07/18/16 [Rx] Labetalol [Trandate] 200 mg PO BID #60 tab 07/18/16 [Rx] Follow up Appointment(s)/Referral(s): Bianca Flowers DO [Doctor of Osteopathic Medicine] - 07/22/16 Patient Instructions/Handouts: (DC) Activity/Diet/Wound Care/Special Instructions: No strenuous activity or heavy lifting for 6 weeks. No intercourse or anything per vagina for [address] Flowers on Thursday for a blood pressure check. Please call if any fever, chills, excessive vaginal bleeding, and/or abdominal pain. Discharge Disposition: HOME SELF-CARE
[2016-07-18] MEDS: LABETALOL 200 MG TAB PO SCH (08:56)
[2016-07-18] MEDS: SENNOSIDES-DOCUSATE SODIUM 1 EACH TAB PO SCH (08:57)
[2016-07-18 08:59] VITALS: BP 156/86; PULSE 86; TEMP 98.8
== END 2016-07-18 12:30 | disposition home or self-care (01) | DRG 766 ==
LOC: 4FBP 06:12
PROVIDERS: ADMIT Obstetrics & Gynecology; ATTEND Obstetrics & Gynecology
PROC: 10D00Z1 Extraction of Products of Conception, Low, Open Approach (ICD-10-PCS; principal; 2016-07-15 20:29)
PROC: 3E033VJ Introduction of Other Hormone into Peripheral Vein, Percutaneous Approach (ICD-10-PCS; principal; 2016-07-15 20:29)
PROC: 3E0R3CZ (ICD-10-PCS; principal; 2016-07-15 20:29)
PROC: 10907ZC Drainage of Amniotic Fluid, Therapeutic from Products of Conception, Via Natural or Artificial Opening (ICD-10-PCS; principal; 2016-07-15 20:29)
PROC: 00HU33Z Insertion of Infusion Device into Spinal Canal, Percutaneous Approach (ICD-10-PCS; principal; 2016-07-15 20:29)
DX: O48.0 Post-term pregnancy (principal); O62.0 Primary inadequate contractions; Z37.0 Single live birth; Z3A.41 41 weeks gestation of pregnancy; O14.14 Severe pre-eclampsia complicating childbirth; O62.2 Other uterine inertia; Z87.891 Personal history of nicotine dependence
CPT/HCPCS: 80074; 80076; 81001; 82565; 83615; 84450; 84460; 84520; 84550; 85025; 85384; 85610; 85730; 86850; 86900; 86901; 88307

== ENCOUNTER 2016-10-01 21:07 | Inpatient (IN) | payer OTHER ==
[2016-10-01] MEDS ORDERED: SODIUM CHLORIDE 0.9% 1,000 ML with MVI, ADULT NO.4 WITH VIT K 10 ML, THIAMINE 100 MG, F... IV ONE ×4 (21:23)
--- NOTE | 2016-10-01 21:30 | ED ---
General Adult HPI - General Source: patient, EMS, RN notes reviewed Mode of arrival: EMS Limitations: no limitations <Fady Wetzel - Last Filed: 10/01/16 21:30> <Jagdeep Cabral - Last Filed: 10/02/16 10:28> - General Chief complaint: Alcohol Stated complaint: ETOH Time Seen by Provider: 10/01/16 21:13 - History of Present Illness Initial comments: Patient is a pleasant 31-year-old female presenting to the emergency department for admitted alcohol intoxication. Patient states she is unclear why she is here. Patient states her boyfriend found her intoxicated and called the ambulance. Patient denies suicidal ideation. Patient admits she started drinking today when she had previously been clean for 18 months. Patient believes she is agitated and having some nausea and diarrhea from withdrawing from Neurontin. (Fady Wetzel) - Related Data Home Medications Medication Instructions Recorded Confirmed Gabapentin 800 mg PO BID 10/01/16 10/01/16 Allergies Allergy/AdvReac Type Severity Reaction Status Date / Time No Known Allergies Allergy Verified 07/15/16 06:23 Review of Systems ROS Other: All systems not noted in ROS Statement are negative. Constitutional: Denies: fever Eyes: Denies: eye pain ENT: Denies: ear pain Respiratory: Denies: cough Cardiovascular: Denies: chest pain Endocrine: Denies: fatigue Gastrointestinal: Reports: nausea, diarrhea. Denies: abdominal pain Genitourinary: Denies: dysuria Musculoskeletal: Denies: back pain Skin: Denies: rash Neurological: Denies: weakness <Fady Wetzel - Last Filed: 10/01/16 21:30> ROS Other: All systems not noted in ROS Statement are negative. <Jagdeep Cabral - Last Filed: 10/02/16 10:28> ROS Statement: Those systems with pertinent positive or pertinent negative responses have been documented in the HPI. Past Medical History Past Medical History: No Reported History History of Any Multi-Drug Resistant Organisms: None Reported Past Surgical History: No Surgical Hx Reported Additional Past Surgical History / Comment(s): surgery on lt side of head to fix soft spot as Past Anesthesia/Blood Transfusion Reactions: No Reported Reaction Past Psychological History: No Psychological Hx Reported Smoking Status: Former smoker Past Alcohol Use History: Abuse Past Drug Use History: None Reported - Past Family History Mother Family Medical History: No Reported History Father Family Medical History: Hypertension <Fady Wetzel - Last Filed: 10/01/16 21:30> General Exam Limitations: no limitations General appearance: alert, in no apparent distress Head exam: Present: atraumatic Eye exam: Present: normal appearance, PERRL ENT exam: Present: normal oropharynx Respiratory exam: Present: normal lung sounds bilaterally Cardiovascular Exam: Present: regular rate, normal rhythm GI/Abdominal exam: Present: soft. Absent: tenderness Extremities exam: Present: normal inspection Neurological exam: Present: alert, oriented X3 Psychiatric exam: Present: depressed Skin exam: Present: normal color <Fady Wetzel - Last Filed: 10/01/16 21:30> Medical Decision Making <Fady Wetzel - Last Filed: 10/01/16 21:30> <Jagdeep Cabral - Last Filed: 10/02/16 10:28> - Medical Decision Making 31-year-old female was observed overnight with acute alcohol intoxication. Patient was petitioned by her boyfriend for concerning behavior and possible suicide ideation. Patient denies suicidal ideation on my reevaluation at 7 AM in the morning. Patient did not have a psych sitter due to limited staff. She did elope through the EMS doors. She was found by local police and return to the emergency department. Patient was then reevaluated by psychiatric services and does require inpatient stay. Patient will be admitted at this time for psychiatric evaluation and treatment. (Jagdeep Cabral) - Lab Data Lab Results 10/02/16 10/02/16 Range/Units 02:44 02:44 Urine HCG, Qual Not Detected (Not Detectd) Urine Opiates Screen Not Detected (NotDetected) Ur Oxycodone Screen Not Detected (NotDetected) Urine Methadone Screen Not Detected (NotDetected) Ur Propoxyphene Screen Not Detected (NotDetected) Ur Barbiturates Screen Not Detected (NotDetected) U Tricyclic Antidepress Not Detected (NotDetected) Ur Phencyclidine Scrn Not Detected (NotDetected) Ur Amphetamines Screen Not Detected (NotDetected) U Methamphetamines Scrn Not Detected (NotDetected) U Benzodiazepines Scrn Not Detected (NotDetected) Urine Cocaine Screen Not Detected (NotDetected) U Marijuana (THC) Screen Not Detected (NotDetected) Disposition <Fady Wetzel - Last Filed: 10/01/16 21:30> Decision to Admit Reason: Admit from EC <Jagdeep Cabral - Last Filed: 10/02/16 10:28> Clinical Impression: Alcoholic intoxication, Depression Disposition: ADMITTED IP TO THIS [facility] Condition: Stable Referrals: None,Stated [Primary Care Provider] - 1-2 days
[2016-10-02] MEDS ORDERED: ONDANSETRON 4 MG/2 ML VIAL IVP STA (04:09)
[2016-10-02] MEDS ORDERED: LORazepam 1 MG TAB PO STA (10:21)
[2016-10-02] MEDS ORDERED: ONDANSETRON ODT 4 MG TAB PO STA (10:21)
[2016-10-02] MEDS ORDERED: MAG HYDROX/AL HYDROX/SIMETH 30 ML CUP PO PRN (14:04)
[2016-10-02] MEDS ORDERED: MAGNESIUM HYDROXIDE 2,400 MG/10 ML CUP PO PRN (14:04)
[2016-10-02] MEDS ORDERED: ACETAMINOPHEN TAB 325 MG TAB PO PRN (14:04)
[2016-10-02] MEDS ORDERED: OLANZapine 5 MG TAB PO ONE (14:15)
[2016-10-02] MEDS: FLUoxetine HCL 20 MG CAP PO SCH (18:30)
[2016-10-02] MEDS: OLANZapine 5 MG TAB PO PRN (18:31)
[2016-10-03 06:38] VITALS: BP 115/58; PULSE 72; RESP 16; TEMP 98
[2016-10-03] MEDS: FLUoxetine HCL 20 MG CAP PO SCH (08:32)
[2016-10-03] MEDS: OLANZapine 5 MG TAB PO PRN (08:32)
[2016-10-03] MEDS ORDERED: NICOTINE 14MG/24HR PATCH TRANSDERM SCH (09:00)
[2016-10-03 09:44] LABS: Basophils % (A) 0 %; CH 28.9; CHCM 33.8; Eosinophils # (A) 0.2 k/uL (0-0.7); Eosinophils % (A) 2 %; HCT 38.2 % (34.0-46.0); HDW 2.82; HGB 13.1 gm/dL (11.4-16.0); Luc # (Auto) 0.18; Luc % (Auto) 2; Lymphocytes # (A) 1.2 k/uL (1.0-4.8); Lymphocytes % (A) 14 %; MCH 29.3 pg (25.0-35.0); MCHC 34.2 g/dL (31.0-37.0); MCV 85.9 fL (80.0-100.0); Mean Platelet Volume 6.5; Monocytes # (A) 0.5 k/uL (0-1.0); Monocytes % (A) 6 %; Neutrophils # (A) 6.8 k/uL (1.3-7.7); Neutrophils % (A) 76 %; RBC 4.45 m/uL (3.80-5.40); RDW 14.7 % (11.5-15.5); WBC 8.9 k/uL (3.8-10.6); WBC (Perox) 9.39
[2016-10-03 10:07] LABS: ALT 57 U/L (9-52); AST 38 U/L (14-36); Alkaline Phosphatase 80 U/L (38-126); Anion Gap 12 mmol/L; Bilirubin, Delta 0.2 mg/dL (0.0-0.2); Blood Urea Nitrogen 11 mg/dL (7-17); Calcium 9.3 mg/dL (8.4-10.2); Carbon Dioxide 24 mmol/L (22-30); Chloride 107 mmol/L (98-107); Glucose 62 mg/dL (74-99); Non-African American GFR(MDRD) >60 (>60 ml/min/1.73 sqM); Potassium 3.7 mmol/L (3.5-5.1); Sodium 143 mmol/L (137-145); Total Bilirubin 0.8 mg/dL (0.2-1.3); Total Protein 6.7 g/dL (6.3-8.2)
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
[2016-10-03] MEDS ORDERED: PSEUDOEPHEDRINE 30 MG TAB PO PRN (12:12)
--- NOTE | 2016-10-03 14:57 | P.CONS ---
History of Present Illness - Reason for Consult NASAl congestion - History of Present Illness 31-year-old female admitted for treatment of his psychiatric issues. Patient is presently complaining of massive condition. Patient has a clear mass or discharge patient does not have any sore throat or cough or sinus pain. Patient denied any headache patient denied any fever chills. Patient appears to have while upper respiratory infection. For which we will use symptomatically treatment IV fluid hydration. Patient does not have any seasonal ALLERGIES. Review of Systems REVIEW OF SYSTEMS: CONSTITUTIONAL: No fever, no malaise, no fatigue. HEENT: No recent visual problems or hearing problems. Denied any sore throat. CARDIOVASCULAR: No chest pain, orthopnea, PND, no palpitations, no syncope. PULMONARY: No shortness of breath, no cough, no hemoptysis. GASTROINTESTINAL: No diarrhea, no nausea, no vomiting, no abdominal pain. Normoactive bowel sounds. NEUROLOGICAL: No headaches, no weakness, no numbness. HEMATOLOGICAL: Denies any bleeding or petechiae. GENITOURINARY: Denies any burning micturition, frequency, or urgency. MUSCULOSKELETAL/RHEUMATOLOGICAL: Denies any joint pain, swelling, or any muscle pain. ENDOCRINE: Denies any polyuria or polydipsia. The rest of the 14-point review of systems is negative. Past Medical History Past Medical History: No Reported History History of Any Multi-Drug Resistant Organisms: None Reported Past Surgical History: No Surgical Hx Reported Additional Past Surgical History / Comment(s): surgery on lt side of head to fix soft spot as Past Anesthesia/Blood Transfusion Reactions: No Reported Reaction Past Psychological History: No Psychological Hx Reported Smoking Status: Former smoker Past Alcohol Use History: Abuse Past Drug Use History: None Reported - Past Family History Mother Family Medical History: No Reported History Father Family Medical History: Hypertension Medications and Allergies Allergies Allergy/AdvReac Type Severity Reaction Status Date / Time No Known Allergies Allergy Verified 07/15/16 06:23 Physical Exam Vitals: Vital Signs Temp Pulse Resp BP 10/03/16 06:38 98.0 F 72 16 115/58 PHYSICAL EXAMINATION: GENERAL: The patient is alert and oriented x3, not in any acute distress. Well developed, well nourished. HEENT: Pupils are round and equally reacting to light. EOMI. No scleral icterus. No conjunctival pallor. Normocephalic, atraumatic. No pharyngeal erythema. No thyromegaly. Patient does have nasal congestion with occasional clear discharge CARDIOVASCULAR: S1 and S2 present. No murmurs, rubs, or gallops. PULMONARY: Chest is clear to auscultation, no wheezing or crackles. ABDOMEN: Soft, nontender, nondistended, normoactive bowel sounds. No palpable organomegaly. MUSCULOSKELETAL: No joint swelling or deformity. EXTREMITIES: No cyanosis, clubbing, or pedal edema. NEUROLOGICAL: Gross neurological examination did not reveal any focal deficits. SKIN: No rashes. Results CBC & Chem 7: 10/03/16 08:55 10/03/16 08:55 Labs: Abnormal Lab Results - Last 24 Hours (Table) 10/03/16 Range/Units 08:55 Glucose 62 L (74-99) mg/dL AST 38 H (14-36) U/L ALT 57 H (9-52) U/L Assessment and Plan Plan: #1 viral upper respiratory infection: Symptomatically treatment with pseudoephedrine. #2 tobacco use history: Counseling was provided. #3 posttraumatic stress disorder with major depression and alcohol dependence: Management as per primary service
--- NOTE | 2016-10-06 14:08 | DS ---
DATE OF SERVICE: 10/03/2016 DATE OF ADMISSION: 10/02/2016 DATE OF DISCHARGE: 10/03/2016 ADMISSION/DISCHARGE DIAGNOSES: 1. Posttraumatic stress disorder. 2. Alcohol dependence with recent relapse after 17 months of sobriety. 3. Major depression, chronic. 4. History of closed head injury two years ago. HISTORY OF PRESENTING ILLNESS: The patient is a 31-year-old female. We engaged the patient in individual and group therapeutic activities. The patient was started on Prozac 20 mg a day, in addition she was prescribed Zyprexa 5 mg twice a day p.r.n. for anxiety. The indication for Zyprexa was to help Augmentin her antidepressant and reduce physiologic stress responses. It might relate to severe anxiety and posttraumatic issues. She relapsed into alcohol use on the day prior to admission. She had nausea and diarrhea which she believed was due to withdrawing from Neurontin which she had stopped 4 to 5 days before. Her relapse, she acknowledged that she had been using excessive amount of Neurontin. She felt it helped her mood. When she was off it, she said she got quite ill and was feeling very anxious. She said part of the inducement to drinking was to help reduce what she thought was withdrawal from Neurontin. She has long-term substance use issues, namely alcohol. She was in [facility] treatment in November 2014 and again in April 2015. She then went into a three-quarter house. She has then transferred to intensive outpatient. She had maintained sobriety for 17 months. She lives with a boyfriend who also has significant substance abuse issues. He had stopped use 4 years ago. Because of her relapse, he became very distressed and called the police insisting that she come to the hospital. She did sign in voluntarily. She was admitted for further evaluation. MEDICAL HISTORY, REVIEW OF SYSTEMS AND PHYSICAL EXAM as per medical consultation. MENTAL STATUS EXAM: Patient gave fair eye contact, psychomotor activity restless. Speech was clear. She was spontaneous and interactive. He affect was somewhat anxious. She smiled. She presented in a superficially bright manner though she lacked insight regarding some of the immediate issues with choices she made and the behavioral implications, thereof. Her mood was somewhat dysphoric, she was not showing signs of thought disorder. It was difficult to say how much distress she was experiencing. Cognition was clear. COURSE OF HOSPITALIZATION: The patient was admitted for a comprehensive medical , psychiatric and psychosocial evaluation. We made efforts to engage the patient in individual and group therapeutic activities. Patient functioned well on the unit. She came out o the day area. She interacted with others. She attended groups. She was appropriate in her behavior. She voiced good insight into the issues that led up to her hospitalization. She recognized the need to get additional help for substance abuse issues. She recognized some the risk factors relating to her one relapse after 17 months of sobriety. On the day of discharge we had a telephone contact with the patient's boyfriend who had called the police to get her to the hospital. He stated that he did not feel she was ready for discharge. The only reason he could provide was that he believed that she was at risk for drinking. He did not indicate that she was at risk for harm to self or others. He did not indicate that she had any significant mood issues. It is noted in discussing this with the patient, she was very clear about her focus and plans for continuing in a recovery program. She intended to attend the road to recovery AA program at [facility] at 7:30 on the day of discharge and that she would also attend the AA meeting on Thursday at [facility]. 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 She has the telephone number for her sponsor and said she will talk to the sponsor as well to get some additional support. We made further efforts to contact the boyfriend again to discuss these issues. We also made an effort to contact mother who at present in taking care of her 2 children, though we were not able to make contact with either. There was no indication for continuing inpatient hospitalization. CONDITION ON DISCHARGE: The patient was stable. Mood had improved. She had better insight relating to substance abuse issues. She had a plan for meetings over the weekend. She had clear understanding of followup plans. RECOMMENDATIONS AND FOLLOWUP: Patient is discharged to home. Discharge medications include: 1. Prozac 20 mg a day. 2. Zyprexa 5 mg twice a day p.r.n. 3. Neurontin was discontinued. She has a followup appointment at [facility] 10/07 at 1 p.m. She will be attending an AA meeting tonight at 7:30 p.m. at [facility] and on Thursday 7:30 at the [facility] in [facility]
== END 2016-10-03 14:28 | disposition home or self-care (01) | DRG 882 ==
LOC: EC 21:07 → 3MHU 10-02 13:00
PROVIDERS: ADMIT Psychiatry & Neurology Psychiatry; ATTEND Psychiatry & Neurology Psychiatry
DX: F43.10 Post-traumatic stress disorder, unspecified (principal); F32.9 Major depressive disorder, single episode, unspecified; F10.229 Alcohol dependence with intoxication, unspecified; J06.9 Acute upper respiratory infection, unspecified; Z87.820 Personal history of traumatic brain injury; Z79.899 Other long term (current) drug therapy; Z82.49 Family history of ischemic heart disease and other diseases of the circulatory system; Z87.891 Personal history of nicotine dependence
CPT/HCPCS: 80053; 80306; 81025; 82075; 82248; 84443; 85025; 96365; 96366; 96375; 99285

== ENCOUNTER 2017-09-24 10:33 | Inpatient (IN) | payer MEDICAID, OTHER ==
[2017-09-24] MEDS ORDERED: ceFAZolin IN SWFI 2 GM/20 ML SYRINGE IVP ONE (10:42)
[2017-09-24] MEDS ORDERED: CITRIC ACID-SODIUM CITRATE 15 ML CUP PO ONE (10:42)
[2017-09-24 10:53] LABS: Basophils # (A) 0.1 k/uL (0-0.2); Basophils % (A) 1 %; Eosinophils # (A) 0.9 k/uL (0-0.7); Eosinophils % (A) 7 %; HCT 32.2 % (34.0-46.0); HGB 10.9 gm/dL (11.4-16.0); Lymphocytes # (A) 1.4 k/uL (1.0-4.8); Lymphocytes % (A) 12 %; MCH 28.9 pg (25.0-35.0); MCHC 33.8 g/dL (31.0-37.0); MCV 85.4 fL (80.0-100.0); Mean Platelet Volume 7.7; Monocytes # (A) 0.5 k/uL (0-1.0); Monocytes % (A) 4 %; Neutrophils # (A) 9.4 k/uL (1.3-7.7); Neutrophils % (A) 76 %; Platelet Count 209 k/uL (150-450); Poikilocytosis Slight; RBC 3.77 m/uL (3.80-5.40); RDW 15.5 % (11.5-15.5); WBC 12.4 k/uL (3.8-10.6)
[2017-09-24 11:27] VITALS: BMI 31.3
[2017-09-24] MEDS: LACTATED RINGERS 1,000 ML IV SCH (11:40)
[2017-09-24] MEDS ORDERED: ePHEDrine SULFATE/0.9% NACL/PF 50 MG/5 ML SYRINGE IV ONE (12:00)
[2017-09-24] MEDS ORDERED: MORPHINE SULFATE (PF) 0.3 MG/0.3 ML SYR ONE (12:00)
[2017-09-24] MEDS ORDERED: MIDAZOLAM 2 MG/2 ML VIAL ONE (12:00)
[2017-09-24] MEDS ORDERED: OXYTOCIN 10 UNIT/ML 1 ML VIAL ONE (12:00)
[2017-09-24] MEDS ORDERED: KETOROLAC 30 MG/ML 1 ML VIAL ONE (12:00)
[2017-09-24] MEDS ORDERED: ONDANSETRON 4 MG/2 ML VIAL ONE (12:00)
[2017-09-24] MEDS ORDERED: PHENYLEPHRINE-0.9% NACL SYG 1 MG/10 ML SYRINGE ONE (12:00)
[2017-09-24] MEDS ORDERED: METOCLOPRAMIDE 5 MG/ML 2 ML VIAL IVP PRN (13:03)
[2017-09-24] MEDS ORDERED: NALOXONE 0.4 MG/ML 1 ML VIAL IV PRN (13:03)
[2017-09-24] MEDS ORDERED: KETOROLAC 30 MG/ML 1 ML VIAL IVP PRN (13:03)
[2017-09-24] MEDS ORDERED: ACETAMINOPHEN TAB 325 MG TAB PO PRN (13:03)
[2017-09-24] MEDS ORDERED: diphenhydrAMINE 25 MG CAP PO PRN (13:03)
[2017-09-24] MEDS ORDERED: diphenhydrAMINE 50 MG CAP PO PRN (13:03)
[2017-09-24] MEDS ORDERED: diphenhydrAMINE 50 MG/ML 1 ML VIAL IVP PRN ×2 (13:03)
[2017-09-24] MEDS ORDERED: ONDANSETRON 4 MG/2 ML VIAL IVP PRN (13:03)
[2017-09-24] MEDS ORDERED: ZOLPIDEM 5 MG TAB PO PRN (13:03)
--- NOTE | 2017-09-24 13:03 | P.OP ---
Date of Procedure: 09/24/17 Preoperative Diagnosis: 39-5/7 weeks intrauterine , anthony breech presentation, previous section Postoperative Diagnosis: Same, liveborn female infant, normal-appearing tubes ovaries and uterus Procedure(s) Performed: Repeat low transverse section Anesthesia: spinal Surgeon: Alba Cox Extermination Supervisor #1: Shruthi Gunter Estimated Blood Loss (ml): 500 IV fluids (ml): 900 Urine output (ml): 200 Pathology: other (Placenta) Condition: stable Disposition: PACU Operative Findings: Liveborn female infant, 3440 g, 7 lbs. 9 oz., scores 8 and 9, anthony breech presentation. Description of Procedure: Patient is brought to the operating suite where a spinal analgesia is administered. She's placed in the dorsal supine position. Alcala catheter is placed to direct drainage. Antibiotics are given. Left lateral uterine displacement is performed. The abdomen is prepped and draped in usual sterile fashion. The appropriate timeout was performed to assure proper patient and procedural identification. The analgesia is checked and noted to be adequate. A keloid incision is noted from previous surgery, this is carved out with a scalpel in a wedge like fashion. Bovie is used to go through the subcutaneous tissue to the fascia. Fascia is isolated, scored and extended bilaterally with curved Kaplan scissors. Peritoneum is next identified and incised, there is no bowel or bladder involvement. Bladder blade is placed over the dome of the bladder. Bladder is created with Metzenbaum scissors, swept well from the operative field, and protected with the bladder retractor. A low transverse uterine incision is made. Artificial amniorrhexis reveals clear fluid. The incision is extended with blunt dissection. The infant is delivered in the anthony breech presentation, legs are removed carefully. The is delivered to the shoulders at which time a blue towel that is moistened is wrapped around the abdomen. Pinard maneuver is used for bilateral upper extremities, the head is delivered in a flexed position. The patient is officially delivered of a liveborn female at 1222 hours. Umbilical cord is doubly clamped and ligated, she is handed to waiting nurses for evaluation where scores of 8 and 9 at one and 5 minutes respectively are given. weighs 3440 g or 7 lbs. 9 oz. Placenta is delivered manually, it is inspected and noted to be intact with trivascular cord at 122 is then swept clean with a sponge to avoid any retained products of conception. The uterus is externalized. Bilateral tubes and ovaries appear normal. Uterus is closed in a two-step fashion, first layer running locking with 0 Vicryl, second layer imbricated with 0 Vicryl. Excellent reapproximation is noted. Abdomen is suctioned with suction on guard. Uterus is gently placed back into the abdominal cavity, bilateral gutters are inspected and cleaned. Hemostasis is excellent. Fascia is closed in a running stitch of 0 Vicryl with over ligation in the midline. 3-0 Vicryl is used to reapproximate subcutaneous tissue. 4-0 undyed Monocryl is used for final skin closure. Steri-Strips and Mastisol are applied to the wound. Dressing is applied. Abdominal binding is applied. Patient is brought back to the recovery room in very good condition with stable vital signs including blood pressure 138/63, pulse 104, 96% O2 saturation. She will be allowed to jameson with the infant as appropriate. All sponge needle and instrument counts are correct. Complications: None
--- NOTE | 2017-09-24 13:11 | P.HPOB ---
History of Present Illness H&P Date: 09/24/17 Chief Complaint: Here for elective , breech presentation, previous C- section 2016. This is a 32-year-old white female 2 para 1001 EDC 09/26/2017 at 39-5/7 weeks' gestation. Patient presented today for repeat transverse section. She had a previous in 2016. In addition, infant is noted to be in the breech presentation. She denies fluid leakage or vaginal bleeding. Fetus is been active throughout the . Past obstetric history is significant for blood type O positive, rubella status immune. Urine culture, gonorrhea and chlamydia cultures, HIV, hepatitis B surface antigen, group B strep cultures all negative. One-hour Glucola normal. VDRL testing negative. Past surgical history significant for low transverse section 2016. Patient had preeclampsia at that time. Past medical history significant for anxiety and depression. Current medications vitamins daily. ALLERGIES none known. Family history noncontributory. Social history significant for tobacco use, one quarter pack per day, patient denies alcohol or drug use. On exam this is a pleasant female, 5 foot 6 inches, 194 pounds, blood pressure 124/62 1 admission, pulse 90, patient is afebrile. The general physical exam is within normal limits. The chest is clear in all yung. Extremities reveal no edema. heart rate is consistent with reactive NST. Infant is breech, bedside ultrasound confirms. Regular rate and rhythm with no murmur click or rub. Impression: 39-5/7 weeks intrauterine , anthony breech presentation, previous section declining . Plan: We will proceed with repeat low transverse section. All risks benefits and alternatives are discussed. Patient is declining option for tubal ligation. Review of Systems Constitutional: Reports as per HPI Past Medical History Past Medical History: GERD/Reflux, Hyperlipidemia, Sleep Apnea/CPAP/BIPAP Additional Past Medical History / Comment(s): preeclampsia previous , hx ulcer, anemia with previous pregnanacy, History of Any Multi-Drug Resistant Organisms: None Reported Past Surgical History: Section Additional Past Surgical History / Comment(s): surgery on lt side of head to fix soft spot as Past Anesthesia/Blood Transfusion Reactions: No Reported Reaction Past Psychological History: Anxiety, Depression Smoking Status: Former smoker Past Alcohol Use History: None Reported Additional Past Alcohol Use History / Comment(s): quit smoking 3 months ago, smoked for 3 yrs, 1 PPD Past Drug Use History: None Reported - Past Family History Mother Family Medical History: Cancer Father Family Medical History: Hypertension Medications and Allergies Home Medications Medication Instructions Recorded Confirmed Type Pnv No.95/Ferrous Fum/Folic AC 1 each PO DAILY 09/21/17 09/24/17 History [ Multivitamin Tablet] Ranitidine HCl [Zantac] 1 tab PO BID 09/24/17 09/24/17 History Allergies Allergy/AdvReac Type Severity Reaction Status Date / Time No Known Allergies Allergy Verified 09/24/17 10:38 Exam Vital Signs Temp Pulse Resp BP 09/24/17 10:37 98.4 F 90 18 124/62 Intake and Output 09/23/17 09/24/17 09/24/17 22:59 06:59 14:59 Other: Weight 87.997 kg See dictation under HPI. Results Result Diagrams: 09/24/17 10:40 Abnormal Lab Results - Last 24 Hours (Table) 09/24/17 Range/Units 10:40 WBC 12.4 H (3.8-10.6) k/uL RBC 3.77 L (3.80-5.40) m/uL Hgb 10.9 L (11.4-16.0) gm/dL Hct 32.2 L (34.0-46.0) % Neutrophils # 9.4 H (1.3-7.7) k/uL Eosinophils # 0.9 H (0-0.7) k/uL Assessment and Plan Assessment: 39-5/7 weeks intrauterine , here for . Declining tubal ligation. Plan: Repeat low transverse section. All risks and benefits discussed. Time with Patient: Greater than 30
[2017-09-24] MEDS: SENNOSIDES-DOCUSATE SODIUM 1 EACH TAB PO SCH (23:44)
[2017-09-25] MEDS: LACTATED RINGERS 1,000 ML IV SCH ×6 (00:22→21:08)
--- NOTE | 2017-09-25 06:13 | P.PN ---
Subjective Progress Note Date: 09/25/17 Positive flatus. R side of body sore. Minimal lochia rubra, no large clots. Objective - Vital Signs Vital signs: Vital Signs Temp 98.5 F 09/25/17 04:00 Pulse 75 09/25/17 04:00 Resp 16 09/25/17 04:00 BP 118/66 09/25/17 04:00 Pulse Ox 97 09/24/17 23:50 Intake & Output 09/24/17 09/24/17 09/25/17 06:59 18:59 06:59 Output Total 2049 1749 Balance -2049 -1749 Weight 87.997 kg Output: Urine 550 1750 Uretheral (Alcala) 350 Estimated Blood Loss 1500 Other: # Voids 2 - Constitutional General appearance: Present: average body habitus, cooperative - EENT Eyes: Present: PERRLA ENT: Present: hearing grossly normal - Respiratory Respiratory: bilateral: CTA - Cardiovascular Rhythm: regular - Gastrointestinal General gastrointestinal: Present: normal bowel sounds - Integumentary Integumentary Comment(s): Incision clean and dry, intact. Steri-Strips applied. Fundus firm, symmetric, mobile, midline, 18 week size. - Neurologic Neurologic: Present: CNII-XII intact - Musculoskeletal Musculoskeletal: Present: gait normal, strength equal bilaterally - Psychiatric Psychiatric: Present: A&O x's 3, appropriate affect, intact judgment & insight - Labs CBC & Chem 7: 09/24/17 10:40 Labs: Abnormal Lab Results - Last 24 Hours (Table) 09/24/17 Range/Units 10:40 WBC 12.4 H (3.8-10.6) k/uL RBC 3.77 L (3.80-5.40) m/uL Hgb 10.9 L (11.4-16.0) gm/dL Hct 32.2 L (34.0-46.0) % Neutrophils # 9.4 H (1.3-7.7) k/uL Eosinophils # 0.9 H (0-0.7) k/uL Assessment and Plan Assessment: Doing well postoperative day 1 Plan: Advance diet and activity. Continue postoperative care. Possible discharge home tomorrow. Time with Patient: Less than 30
[2017-09-25 08:53] LABS: Basophils % (A) 0 %; Eosinophils # (A) 0.4 k/uL (0-0.7); Eosinophils % (A) 3 %; HCT 33.2 % (34.0-46.0); Lymphocytes # (A) 1.4 k/uL (1.0-4.8); Lymphocytes % (A) 9 %; MCH 28.5 pg (25.0-35.0); MCHC 33.2 g/dL (31.0-37.0); MCV 85.9 fL (80.0-100.0); Mean Platelet Volume 7.2; Monocytes # (A) 0.6 k/uL (0-1.0); Monocytes % (A) 4 %; Neutrophils # (A) 13.4 k/uL (1.3-7.7); Neutrophils % (A) 84 %; Platelet Count 223 k/uL (150-450); Poikilocytosis Slight; RBC 3.87 m/uL (3.80-5.40); RDW 15.6 % (11.5-15.5)
[2017-09-25] MEDS: HYDROcodone/APAP 5-325MG 1 EACH TAB PO PRN ×3 (09:09→22:26)
[2017-09-25] MEDS: SENNOSIDES-DOCUSATE SODIUM 1 EACH TAB PO SCH ×2 (09:09→19:26)
--- NOTE | 2017-09-25 10:05 | P.PN ---
Progress Note - Text Progress Note Date: 09/25/17 Postoperative day 1 status post section under spinal anesthesia, and intrathecal morphine given for postoperative analgesia, patient doing well, there is no anesthesia related complications, Patient had no headache, vital signs stable , Assessment and plan= postop day 1 status post , doing well there is no anesthesia related complication.
[2017-09-25] MEDS: IBUPROFEN 600 MG TAB PO PRN ×2 (12:45→19:26)
[2017-09-25 16:21] VITALS: RESP 16
[2017-09-25] MEDS: SIMETHICONE 80 MG CHEWABLE PO PRN (20:40)
[2017-09-26] MEDS: HYDROcodone/APAP 5-325MG 1 EACH TAB PO PRN ×2 (03:04→07:43)
[2017-09-26] MEDS: SIMETHICONE 80 MG CHEWABLE PO PRN ×2 (03:04→07:44)
[2017-09-26 08:14] VITALS: BP 127/75; PULSE 75; TEMP 97.8
[2017-09-26] MEDS: SENNOSIDES-DOCUSATE SODIUM 1 EACH TAB PO SCH (08:15)
--- NOTE | 2017-09-26 08:32 | P.DS ---
Providers Date of admission: 09/24/17 10:33 Expected date of discharge: 09/26/17 Attending physician: Alba Cox Primary care physician: Stated None Hospital Course: This is a very pleasant 32-year-old 2 para 1001 with an estimated due date of at 39-5/7 weeks gestation that presented for repeat section on 81. Patient had a history of a prior in 2016. Patient was noted to be in breech presentation in addition. Patient was taken back to the operating room and repeat section was performed without difficulty for further details on the please see the operative report. She delivered a female at 1222 weight of 7 lbs. 9 oz. with Apgars of 8 and 9 at one and 5 minutes respectively. She is doing well postoperatively. She is ambulating and voiding without difficulty. She is tolerating a regular diet without nausea or vomiting. She denies concerns and wishes discharge home on this day #2 Patient Condition at Discharge: Good Plan - Discharge Summary Discharge Rx Participant: No New Discharge Prescriptions: No Action Pnv No.95/Ferrous Fum/Folic AC [ Multivitamin Tablet] 1 each PO DAILY Ranitidine HCl [Zantac] 1 tab PO BID Discharge Medication List Pnv No.95/Ferrous Fum/Folic AC [ Multivitamin Tablet] 1 each PO DAILY [History] Ranitidine HCl [Zantac] 1 tab PO BID 09/24/17 [History] Follow up Appointment(s)/Referral(s): Merlin Swenson MD [STAFF PHYSICIAN] - 2 Weeks Patient Instructions/Handouts: (DC), (GEN) Discharge Disposition: HOME SELF-CARE
== END 2017-09-26 10:17 | disposition home or self-care (01) | DRG 765 ==
LOC: 4FBP 10:33
PROVIDERS: ADMIT Obstetrics & Gynecology; ATTEND Obstetrics & Gynecology
PROC: 10D00Z1 Extraction of Products of Conception, Low, Open Approach (ICD-10-PCS; principal; 2017-09-24 12:00)
DX: O32.1XX0 Maternal care for breech presentation, not applicable or unspecified (principal); O99.354 Diseases of the nervous system complicating childbirth; O34.211 Maternal care for low transverse scar from previous cesarean delivery; O99.334 Smoking (tobacco) complicating childbirth; O99.284 Endocrine, nutritional and metabolic diseases complicating childbirth; O99.62 Diseases of the digestive system complicating childbirth; Z3A.39 39 weeks gestation of pregnancy; Z37.0 Single live birth; F17.210 Nicotine dependence, cigarettes, uncomplicated; N85.8 Other specified noninflammatory disorders of uterus; K21.9 Gastro-esophageal reflux disease without esophagitis; E78.5 Hyperlipidemia, unspecified; G47.30 Sleep apnea, unspecified; Z79.899 Other long term (current) drug therapy; Z86.59 Personal history of other mental and behavioral disorders; Z82.49 Family history of ischemic heart disease and other diseases of the circulatory system; Z80.9 Family history of malignant neoplasm, unspecified
CPT/HCPCS: 85025; 86850; 86900; 86901

== ENCOUNTER → 2021-09-04 | Outpatient (CLI) | payer OTHER ==
--- NOTE | 2021-09-04 09:14 | MM ---
Reason for Exam: Clinical finding. Baseline mammogram. Indicated Problems: Lump or thickening of the right side. Patient History: Menarche at age 14. First Full-Term at age 31. Postmenopausal. Patient has history of breast feeding. Maternal aunt had breast cancer at or over age 50. Last menstrual period: 06/18/2020 Prior Study Comparison: Patient's first Mammogram. Tissue Density: The breast tissue is extremely dense which could obscure a lesion on mammography. Findings: Analyzed By CAD. A palpable abnormality is marked on the right breast. No underlying mammographic abnormality is evident at this level. Ultrasound is recommended for additional workup. No suspicious spiculated or lobular masses, clusters of microcalcifications, architectural distortion, or other secondary signs of malignancy are radiographically apparent. Overall Assessment: Incomplete: need additional imaging evaluation, BI-RAD 0 Management: Diagnostic Breast Ultrasound of both breasts. A clinical breast exam by your physician is recommended on an annual basis and results should be correlated with mammographic findings. This exam should not preclude additional follow-up of suspicious palpable abnormalities. Results were given to the patient verbally at the time of exam. Electronically signed and approved by: Anthony Hernández D.O. Radiologis
--- NOTE | 2021-09-04 10:51 | USB ---
Patient History: Menarche at age 14. First Full-Term at age 31. Postmenopausal. Patient has history of breast feeding. Maternal aunt had breast cancer at or over age 50. Tissue Density: Dense breasts without any distinct masses, palpable area scanned, dense tissue seen. Findings: The whole breast of both breasts, the axilla of both breasts and the retroareolar of both breasts were scanned. No solid or cystic masses are identified. No suspicious ultrasound abnormalities evident at the level of the palpable region. Clinical management of the palpable abnormality is recommended. Overall Assessment: Negative, BI-RAD 1 Management: Screening Mammogram of both breasts in 1 year. A clinical breast exam by your physician is recommended on an annual basis and results should be correlated with mammographic findings. Patient should continue monthly self breast exam negative mammogram nor negative ultrasound should not preclude biopsy of suspicious palpable abnormalities. Electronically signed and approved by: Anthony Hernández D.O. Radiologis
== END | disposition home or self-care (01) ==
LOC: RADMAMWWP 08:11
PROVIDERS: ATTEND Family Medicine
DX: N63.10 Unspecified lump in the right breast, unspecified quadrant (principal)
CPT/HCPCS: 77066